=== PATIENT | female | born 1990 | race Hispanic/Latino ===

== ENCOUNTER 2017-01-26 11:56 | Emergency (ER) | payer OTHER ==
[2017-01-26 12:24] VITALS: BP 107/52; TEMP 98.6; O2SAT 97
--- NOTE | 2017-01-26 13:09 | ED.PDOC ---
History of Present Illness - General Chief Complaint: General Stated Complaint: cough and body aches Time Seen by Provider: 01/26/17 12:00 Source: patient Exam Limitations: no limitations - History of Present Illness Initial Comments: the patient is a 27-year-old female presenting at 21 weeks estimated gestational age with symptoms of cough, sore throat, runny nose, fever, mild headache for the last 24-48 hours. She had been in good health prior to that. No shortness of breath. No chest pain. No vomiting. Mild anorexia. No contractions or loss of fluid. No vaginal bleeding. Timing/Duration: 24 hours Severity: moderate Improving Factors: nothing Worsening Factors: nothing Associated Symptoms: cough, loss of appetite, malaise, weakness Allergies/Adverse Reactions: Allergies NO KNOWN ALLERGY Allergy (Verified 01/26/17 12:24) Home Medications: Ambulatory Orders 1 each PO DAILY 12/28/13 Oseltamivir Capsule [Tamiflu] 75 mg PO BID #10 cap 01/26/17 Review of Systems - Review of Systems Constitutional: States: fever, malaise EENTM: States: nose congestion, throat pain Respiratory: States: cough Cardiology: States: no symptoms reported Gastrointestinal/Abdominal: States: no symptoms reported Genitourinary: States: no symptoms reported Musculoskeletal: States: no symptoms reported - except generalized myalgias Skin: States: no symptoms reported Neurological: States: headache - ild no nuchal rigidity no altered mental status Endocrine: States: no symptoms reported All other Systems: No Change from Baseline Past Medical History (General) - Patient Medical History Hx Diabetes: No Surgical History: other - Vaccination History Hx Pneumococcal Vaccination: No - Social History Hx Tobacco Use: Yes Hx Alcohol Use: No - Female History Patient : Yes Expected Date of Delivery:: 05/30/14 Hx Gestational Age: 18 Family Medical History - Family History Mother Family History: Unknown Living Status: Unknown Physical Exam - Physical Exam General Appearance: Alert, No apparent distress Eye Exam: bilateral normal Ears, Nose, Throat: hearing grossly normal, nasal congestion, pharyngeal erythema Neck: full range of motion, supple Respiratory: lungs clear, normal breath sounds, no respiratory distress, no accessory muscle use Cardiovascular/Chest: normal peripheral pulses, regular rate, rhythm, no edema Peripheral Pulses: radial,right: 2+, radial,left: 2+, dorsalis pedis,right: 2+, dorsalis pedis,left: 2+ Gastrointestinal/Abdominal: non tender, soft, other - heart tones are in the 160s Rectal Exam: deferred Back Exam: no CVA tenderness, no vertebral tenderness Extremity: normal range of motion, non-tender, normal inspection, no pedal edema , normal capillary refill 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 She has tested positive for influenza and negative for strep. She needs to keep herself well hydrated. She can take Tylenol every 6 hours for the next few days to help control symptoms. She'll be written for Tamiflu for the next 5 days. 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 ER warnings were given for any significant worsening. Departure - Departure Clinical Impression: Influenza A Disposition: Discharge to Home or Self Care Condition: Fair Departure Forms: ED Discharge - Pt. Copy, Patient Portal Self Enrollment Instructions: Influenza Diet: regular diet Activity: increase activity as tolerated Referrals: RILEY FRY [Primary Care Provider] - 1-2 Weeks Prescriptions: Oseltamivir Capsule [Tamiflu] 75 mg PO BID #10 cap Home Medications: Ambulatory Orders 1 each PO DAILY 12/28/13 Oseltamivir Capsule [Tamiflu] 75 mg PO BID #10 cap 01/26/17 Additional Instructions: the patient is 27-year-old presenting with what appears to be the flu. She has tested positive for influenza and negative for strep. She needs to keep herself well hydrated. She can take Tylenol every 6 hours for the next few days to help control symptoms. She'll be written for Tamiflu for the next 5 days. 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 ER warnings were given for any significant worsening.
== END 2017-01-26 13:22 | disposition home or self-care (01) ==
LOC: ER 11:56
DX: O98.512 Other viral diseases complicating pregnancy, second trimester (principal); J10.1 Influenza due to other identified influenza virus with other respiratory manifestations; Z3A.21 21 weeks gestation of pregnancy; Z87.891 Personal history of nicotine dependence